=== PATIENT | female | born 1955 | race Caucasian/White ===

== ENCOUNTER → 2021-09-19 | Outpatient (CLI) | payer OTHER ==
[~2021-09-19] VITALS: Ht 167.6 cm; Wt 122.5 kg
[~2021-09-19] MED LIST: ALIGN4 MG PO; BENEFIBER1 G1 PO; BUPROPION HCL200 MG PO; CALTRATE-600 W1 EACH PO; CLONAZEPAM 0.50.5 M1 PO; COUMADIN 5 MG TA5 M1 PO; DETROL1 MG PO; GABAPENTIN100 MG PO; JANTOVEN6 MG PO; LEXAPRO 10 MG T10 M1 PO; LOSARTAN POTAS100 MG PO; MACROBID 100 M100 M1 PO; MULTIVITAMINS PO; NEURONTIN 400400 M1 PO; NEURONTIN600 MG PO; PREVACID15 MG PO; PROGESTERONE100 MG; SEROQUEL 25 MG25 M1 PO; VIIBRYD40 MG PO
--- NOTE | ~2021-09-19 | HPC ---
[facility] [place] [address] PAIN MANAGEMENT CONSULTATION Name: ODALYS CARREON Room #: REG [facility].#: [id number] Admission: 09/19/21 Attend Phys: Maximiliano Gabriel DO Discharge: Date of : 53 Report #: [id number] THIS REPORT FOR: cc: ISA MAYS Physician not on staff Maximiliano Gabriel DO ~ cc: JAVON Fournier DATE OF SERVICE: 09/19/2021 REFERRING PHYSICIAN: Abhilash Tucker, nurse practitioner. CHIEF COMPLAINT: Low back pain, right lower extremity pain with paresthesias. HISTORY OF PRESENT ILLNESS: As you know, the patient is a class III morbidly obese 66-year-old female with longstanding history of low back pain and right lower extremity pain with radiation of symptoms all the way from the buttock area to the foot. She indicates her pain began somewhere around 02/26/2021. She denies injury or trauma. She has undergone a reported epidural injection at [facility] with Dr. Sen, which according to the patient exacerbated her symptoms, leaving it near impossible to participate in physical therapy and daily activities. She has had a prior fusion with Dr. Reyna in 2008 with postsurgical changes from L3, L4 through L5. This apparently improved her symptoms for a time, but unfortunately as of February 2021, her back pain reoccurred with radiation down the right leg. She sought evaluation through Neurosurgery to discuss options for therapy. She was displaying some tenderness over the right sacroiliac joint, and the patient was referred to our clinic to discuss the possibility of undergoing a sacroiliac joint injection under fluoroscopic guidance to address her upper buttock symptoms. The patient reports today pain is located in the lower buttock area directly over the sciatic notch, radiating down the right leg. She describes the pain as more periodic, intermittent, momentary and transient in its presentation. She describes the pain as shooting, aching, pulling, sharp, stabbing, tender, numbness and tingling. Places current pain score 5/10. Daily average of 4-6/10. Worst the pain has been is 10+/10. The patient states her pain is exacerbated with trying to get into a car and bending over as well as ambulating and sleeping. Pain is improved with nothing to date. She has been referred to our service by her Neurosurgery team to discuss right sacroiliac joint injection. PAST MEDICAL HISTORY: GERD, hypertension, atrial fibrillation, interstitial cystitis, gastroparesis, anxiety disorder, sacroiliitis, chronic low back pain and morbid obesity. PAST SURGICAL HISTORY: 1. L3 through L5 fusion. [address] [address] PAIN MANAGEMENT CONSULTATION Name: ROCAELORIONODALYS ABHILASH Room #: REG [facility]#: [id number] Admission: 09/19/21 Attend Phys: Maximiliano Gabriel DO Discharge: Date of : 53 Report #: [id number] 2. PFO closure. 3. Bunionectomy x2. 4. Carpal tunnel syndrome. 5. Trigger finger release. SOCIAL HISTORY: The patient denies tobacco, alcohol or IV or illicit drug use. She is a retired teacher. She is not working, not receiving workmen's compensation nor is she trying to obtain disability benefits. She is not in litigation in regards to pain. She is unaccompanied today. REVIEW OF SYSTEMS: Positive for peptic ulcer disease, nocturia, chronic low back pain, right lower extremity pain with paresthesias, GERD, bleeding and bruising tendencies. All other review of systems negative per 12-point review of systems other than those listed in history of present illness. Pain impact score 46/70, severe interference of daily activities secondary to pain. ALLERGIES: BUSPIRONE, CYCLOBENZAPRINE, PENICILLIN, SULFA, ALOE VERA, KETOPROFEN, SULFAMETHOXAZOLE, TRIAMTERENE, ADHESIVE TAPE, BENZTROPINE, VANCOMYCIN, SEVOFLURANE AND LATEX. CURRENT MEDICATIONS: Viibryd 40 mg once a day, Seroquel 25 mg p.o. at bedtime, Align 4 mg once a day, losartan 100 mg per day, gabapentin 400 mg twice a day, calcium carbonate 1 tab per day, multivitamin 1 tab per day, Detrol 1 mg once a day, bupropion SR 200 mg 2 tabs p.o. q.a.m., Prevacid 15 mg per day, warfarin 5 mg per day. IMAGING: X-ray of the lumbar spine with flexion and extension, dated 04/19/2021 shows prior L3 through L5 posterior spinal fusion with lumbar laminectomies, left convexity curvature of the thoracolumbar spine with grade 1 anterolisthesis of L2 on L3, L3 on L4 and L4 on L5. Multilevel degenerative changes. MRI of the lumbar spine obtained 04/13/2021 shows postsurgical changes, levoconvex scoliosis, multilevel spondylosis and spondylolisthesis of lumbar spine. Postsurgical changes at L3-L4 and L4-L5 with fusion. There is decompression of the spinal canal at L3-L4. There is stenosis at the L4-L5 intervertebral space level. No high-grade neural foraminal narrowing. Grade 1 anterolisthesis of L3 on L4 and L4 on L5. L2-L3 spondylosis with spinal narrowing and compression of thecal sac with moderate foraminal narrowing. Mild central canal narrowing and moderate bilateral L5-S1 neural foraminal stenosis is noted. PQRS: The patient has known arthritic changes of the lumbar spine, bilateral hands, hips and knees. No rheumatoid arthritis. The patient's pain intensity is anywhere from 5-10/10. She is not a fall risk, has not had a fall in last 3 [facility] [address] [place] [address] PAIN MANAGEMENT CONSULTATION Name: ROCAELORIONODALYS Room #: REG [facility]#: [id number] Admission: 09/19/21 Attend Phys: Maximiliano Gabriel DO Discharge: Date of : 53 Report #: [id number] months. She is on blood thinners in the form of warfarin. She is treated for hypertension. She is on no opioids, has a low opioid addiction potential based on our assessment tool. Pain impact is 46/70, severe interference of daily activities secondary to pain. PHYSICAL EXAMINATION: VITAL SIGNS: Blood pressure 150/93, pulse 62, respiratory rate 20 and unlabored. The patient 100% on room air. Height 5 feet 6 inches tall, weight 270 pounds, BMI calculated 43.6. GENERAL: Well-developed, well-nourished, well-hydrated class III morbidly obese 66-year-old female, appearing stated age. She is in no acute distress. Awake, alert and oriented x3. Pain is rated today at 5-10/10. HEENT: Normocephalic, atraumatic. Pupils are round and responsive. She is wearing a mask in compliance with COVID-19 regulations and hospital policy. LUNGS: Appear clear. No wheezes, no rhonchi, no rales. CARDIOVASCULAR: Regular. No appreciable gallop, no rub. ABDOMEN: Soft, obese. EXTREMITIES: Show no clubbing, no cyanosis, no appreciable edema. MUSCULOSKELETAL: Lower extremity strength equal and symmetrical, 5/5. Seated straight leg raising negative. Supine straight leg raising positive on the right. Douglas's test is negative. Thigh thrust maneuver is mildly positive over the right, negative left. Trent's test is positive on the right, negative left. Palpatory tenderness is noted over the right sacroiliac joint, negative left. Deep palpation over the sciatic notch causes the patient's typical pain with radiation along the lateral aspect of the leg with radiation all the way down to the medial ankle. Gait is antalgic, favoring right lower extremity over left. Muscle bulk and tone appears symmetrical. Downgoing Babinski's. Deep tendon reflexes were symmetrical, but diminished at the patella and Achilles. ASSESSMENT: 1. Right sacroiliac joint pain. 2. Lumbar radiculopathy. 3. Central canal stenosis of lumbar spine. 4. Neural foraminal stenosis of lumbar spine. 5. Failed lumbar spine surgery. 6. Chronic intractable pain. PLAN: 1. The patient has been referred to our service by her Neurosurgery team to discuss the possibility of undergoing a right sacroiliac joint injection as it is considered 1 of the major pain generator this patient is currently experiencing. She does have palpatory tenderness over the right sacroiliac joint and had provocation testing consistent with SI joint pain, but she is not experiencing any distribution of symptoms consistent with an SI joint dysfunction. Her symptoms start in the mid buttock area unrelated to the SI joint, radiating down the right leg. It would appear that she is suffering from [facility] [address] [place] [address] PAIN MANAGEMENT CONSULTATION Name: VETETO,ODALYS ABHILASH [id number] Admission: 09/19/21 Attend Phys: Maximiliano Gabriel DO Discharge: Date of : 53 Report #: [id number] a possible lumbar radiculopathy in conjunction with right sacroiliac joint pain. We have discussed with the patient over an extended period of time today the treatment options we have. The patient is quite confused in regards to the reason for her referral to our clinic. She states that she was doing well in physical therapy and that previous injections have exacerbated her symptoms. She is not sure she wants to look towards interventional treatments, though after a very long discussion today was taking over 45 minutes of time, we then gave the patient the options we have to treat her symptoms at present. The following was discussed with the patient today. We discussed continuation of physical therapy, stretching exercises and core strengthening as well as concerted effort at weight loss as a treatment approach. We discussed suggestions and medication management to be provided to the prescribing physician. We also discussed the interventional treatment requested of us the right sacroiliac joint injection. We also discussed ultimately surgical options including fusion of the SI joint and further addressing her lumbar radicular symptoms. After reviewing the risks and benefits of all proposed treatment options, the patient chose to continue with physical therapy. 2. The patient will continue her physical therapy. She has seen some benefit with this option of treatment. She will continue to participate in the physical therapy program on a formalized fashion until which time she runs low of coverage from her insurer. She will then take all of the information she has gained over the time with physical therapy and do those exercises at home. We made no adjustments in her physical therapy techniques at this point. 3. We will make ourselves available to the patient if she wishes to return to undergo right sacroiliac joint injection. We have advised the patient that if she is not seeing the improvement after 2 weeks more of physical therapy, she can return to undergo the SI joint injection proposed. This will improve her upper buttocks symptoms that she is experiencing, but will likely have little benefit involving the right lower extremity symptoms radiating to the medial ankle. We will make ourselves available to the patient if she wishes to return to undergo the injection. 4. No medication changes made at today's visit. The patient will continue current medical therapy as prior prescribed. 5. We will see the patient back in followup visit as indicated above. We will keep you apprised if she does return to undergo those injections. 6. We wish to thank nurse practitioner, Anel Tucker for the opportunity to see the patient in consultation. We will keep you apprised of her response to treatment if she does return to undergo injections with our services. Again, we wish to thank you for the opportunity to see the patient in consultation. By: [id number] Maximiliano Gabrile DO /nt
[2021-09-19 13:03] VITALS: BP 150/93
--- NOTE | 2021-09-19 14:13 | NUR ---
Pain Clinic Assessment: 1. History of Osteoarthritis: SPINE HANDS History of Rheumatoid Arthritis: DENIES 2. Height: 5 ft. 6 in. 167.6 cm. Weight: 270.0 lb. oz. 122.472 kg. Patient's BMI: 43.6 3. Vital Signs: BP: 150/93 Pulse: 62 Resp: 20 Temp: 02 Sat: 100 ECG Mon: 4. Pain Intensity: 5 TO 10 5. Fall Risk: Dizziness: N Needs help standing or walking: N Fallen in the last 3 months: N Fall risk comments: 6. Patient on Blood Thinner: Y 7. History of Hypertension: Y 8. Opioid Therapy greater than 6 weeks: N Opiate Contract Signed: 9. Risk Assessment Tool Provided: LOW-1 10. Functional Assessment Tool: 11. Recreational Drug Use: Never Drug Type: Tobacco Use: Never Smoker Tobacco Type: Amount or Packs/day: How Many Years: Alcohol Use: No Frequency: Quant:
== END ==
LOC: PAIN 10:40
PROVIDERS: ATTEND Anesthesiology Pain Medicine
DX: M54.16 Radiculopathy, lumbar region (principal); M48.061 Spinal stenosis, lumbar region without neurogenic claudication; M53.3 Sacrococcygeal disorders, not elsewhere classified; M96.1 Postlaminectomy syndrome, not elsewhere classified; G89.29 Other chronic pain; I10 Essential (primary) hypertension; K21.9 Gastro-esophageal reflux disease without esophagitis; I48.91 Unspecified atrial fibrillation; M79.661 Pain in right lower leg; Z88.0 Allergy status to penicillin; Z88.8 Allergy status to other drugs, medicaments and biological substances

== ENCOUNTER → 2021-10-04 | Outpatient (CLI) | payer OTHER ==
[~2021-10-04] VITALS: Ht 167.6 cm; Wt 125.3 kg
--- NOTE | ~2021-10-04 | HPC ---
[facility] [place] [address] PAIN MANAGEMENT CONSULTATION Name: ODALYS CARREON Room #: REG [facility].#: [id number] Admission: 10/04/21 Attend Phys: Maximiliano Gabriel DO Discharge: Date of : 53 Report #: [id number] THIS REPORT FOR: cc: Darlin Tucker BUSINESS LEADER Physician not on staff Maximiliano Gabriel DO ~ cc: JAVON Fournier DATE OF SERVICE: 10/04/2021 CHIEF COMPLAINT: Low back, right lower extremity pain with paresthesias. HISTORY OF PRESENT ILLNESS: As you know, the patient is a class 3, morbidly obese 66-year-old female with longstanding history of low back pain, right lower extremity pain with radiation of symptoms all the way from the buttock to the foot. She was referred to our clinic by neurosurgery to be evaluated for right sacroiliac joint injection. I saw the patient on 09/19/2021 where we spent over 2 hours of time reviewing the patient's case and describing the treatment options for right sacroiliac joint pain. The patient at the time decided she did not wish to undergo treatment. She wanted to follow up with Neurosurgery. She returns today in followup visit reporting a pain score of 10/10. She is able to localize pain to the right buttock area and describes pain that radiates all the way down the leg to her foot. She returns to discuss SI joint injection again and to determine the logistics that have to be completed before she can undergo that procedure including the discontinuation of her Coumadin. She places pain today at 10/10. There has been no new inciting injury or trauma. She describes the pain as intermittent, stabbing, tenderness and sharp, exacerbated with sitting in a car and bending over. ALLERGIES: See the extensive list in chart. CURRENT MEDICATIONS: Viibryd, Seroquel, Align, losartan, gabapentin, calcium carbonate, multivitamin, Detrol, bupropion, lansoprazole and warfarin. SOCIAL HISTORY: The patient denies tobacco, alcohol, IV or illicit drug use. 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 IMAGING: No new imaging available. PQRS: The patient has known arthritic changes of lumbar spine, bilateral hips, hands and knees. No rheumatoid arthritis. She is placing pain intensity today at 10/10. She is not a fall risk, has not had a fall in last 3 months. She is on blood thinners and continues on warfarin today. She is treated for hypertension. She is not on opioids, has a low opioid addiction potential based on assessment tool. Pain impact is 46 of 70, severe interference of daily activities secondary to pain. [address] [address] PAIN MANAGEMENT CONSULTATION Name: ODALYS CARREON Room #: REG [facility]#: [id number] Admission: 10/04/21 Attend Phys: Maximiliano Gabriel DO Discharge: Date of : 53 Report #: [id number] PHYSICAL EXAMINATION: VITAL SIGNS: Blood pressure 144/82, pulse of 55, respiratory rate 18 and unlabored. The patient 98% on room air. Height 5 feet 6 inches tall, weight 276.2 pounds, BMI calculated 44.6. GENERAL: Well-developed, well-nourished, well-hydrated class III, morbidly obese 66-year-old female appearing stated age, pain is rated today 10/10. HEENT: Normocephalic, atraumatic. Pupils equal, round and responsive. She is wearing a mask in compliance with COVID-19 regulations. EXTREMITIES: Show no clubbing, no cyanosis. No appreciable edema. MUSCULOSKELETAL: Lower extremity strength is symmetrical again today 5/5. Seated straight leg raising negative. Supine straight leg raising positive on the right. Fabere's test is negative. Thigh thrust maneuver mildly positive on the right, negative left. Trent's test is positive on the right, negative on the left. Deep palpation of the sciatic notch causes intensification of pain. ASSESSMENT: 1. Right sacroiliac joint pain. 2. Right sacroiliac joint dysfunction. 3. Lumbar radiculopathy. 4. Central canal stenosis of lumbar spine. 5. 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 7. Chronic intractable pain. PLAN: 1. The patient returns today in followup visit to discuss further the possibility of undergoing an SI joint injection on the right side. The patient has considered her options and does wish to move forward today with SI joint injection. She has not stopped her Coumadin in preparation for today's procedure. She will have to discontinue the medication for at least 3 days before she can safely undergo the procedure. The patient is agreeable with undergoing the procedure next Saturday. She will discontinue her Coumadin starting Saturday10/07/2021 and continue off the medication until our visit on Saturday. She will undergo the SI joint injection. We will restart the Coumadin that afternoon. The patient is agreeable with the plan. 2. No medication changes made at today's visit. The patient will continue current medical therapy as prior prescribed. 3. We will see the patient back in followup visit on Saturday of next week for a right sacroiliac joint injection under fluoroscopic guidance to address right sacroiliac joint pain and dysfunction. By: [id number] Maximiliano Gabriel DO /nt
[2021-10-04 09:27] VITALS: BP 144/82
--- NOTE | 2021-10-04 09:37 | NUR ---
Pain Clinic Assessment: 1. History of Osteoarthritis: SPINE HANDS History of Rheumatoid Arthritis: DENIES 2. Height: 5 ft. 6 in. 167.6 cm. Weight: 276.2 lb. oz. 125.284 kg. Patient's BMI: 44.6 3. Vital Signs: BP: 144/82 Pulse: 55 Resp: 18 Temp: 02 Sat: 98 ECG Mon: 4. Pain Intensity: 10 5. Fall Risk: Dizziness: N Needs help standing or walking: N Fallen in the last 3 months: N Fall risk comments: 6. Patient on Blood Thinner: Y 7. History of Hypertension: Y 8. Opioid Therapy greater than 6 weeks: N Opiate Contract Signed: 9. Risk Assessment Tool Provided: LOW-1 10. Functional Assessment Tool: 11. Recreational Drug Use: Never Drug Type: Tobacco Use: Never Smoker Tobacco Type: Amount or Packs/day: How Many Years: Alcohol Use: No Frequency: Quant:
== END ==
LOC: PAIN 06:56
PROVIDERS: ATTEND Anesthesiology Pain Medicine
DX: M54.16 Radiculopathy, lumbar region (principal); M48.061 Spinal stenosis, lumbar region without neurogenic claudication; M96.1 Postlaminectomy syndrome, not elsewhere classified; G89.29 Other chronic pain; M53.3 Sacrococcygeal disorders, not elsewhere classified; M79.661 Pain in right lower leg; Z88.8 Allergy status to other drugs, medicaments and biological substances; Z79.899 Other long term (current) drug therapy; Z79.01 Long term (current) use of anticoagulants

== ENCOUNTER → 2021-10-10 | Outpatient (CLI) | payer OTHER ==
[~2021-10-10] VITALS: Ht 167.6 cm; Wt 123.4 kg
--- NOTE | ~2021-10-10 | HPC ---
[address] [address] PAIN MANAGEMENT CONSULTATION Name: ODALYS CARREON Room #: REG [facility]..#: [id number] Admission: 10/10/21 Attend Phys: Maximiliano Gabriel DO Discharge: Date of : 53 Report #: [id number] THIS REPORT FOR: cc: Darlin Tucker HYDROCRANE OPERATOR Physician not on staff Maximiliano Gabriel DO ~ cc: JAVON Fournier DATE OF SERVICE: 10/10/2021 CHIEF COMPLAINT: Low back pain, right buttock and posterolateral thigh pain. HISTORY OF PRESENT ILLNESS: As you know, the patient is a class 3 morbidly obese 66-year-old female with longstanding history of low back pain, right lower extremity pain with radiation of symptoms from the buttock area to the foot. She was referred to our service by Neurosurgery to undergo SI joint injection under fluoroscopic guidance. She was last seen in our clinic on 10/04/2021 where she agreed to undergo the procedure as her symptoms did not resolve with conservative treatment. She established today's appointment to undergo that procedure per her request. She returns today in followup visit with pain score of 7/10 to undergo right sacroiliac joint injection under fluoroscopic guidance. The patient denies injury or trauma that may have led to symptom development. There has been no changes in her medication management since our last visit that would preclude her from undergoing the injection today. ALLERGIES: See the extensive list in chart. CURRENT MEDICATIONS: See chart. SOCIAL HISTORY: The patient denies tobacco, alcohol or IV or illicit drug use. She is a retired teacher. She is unaccompanied today. IMAGING: No new imaging available. PQRS: The patient has known arthritic changes of the lumbar spine, bilateral hips and knees. No rheumatoid arthritis. She is placing pain intensity today 7/10. She is not a fall risk, has not had a fall in last 3 months. She is on a blood thinner in the form of warfarin, but discontinued the medication 3 days ago. She is treated for hypertension, but is not on any chronic opioids, has a low opioid addiction potential based on assessment tool. Pain impact is 46/70, severe interference of daily activities secondary to pain. PHYSICAL EXAMINATION: VITAL SIGNS: Blood pressure 149/79, pulse 55, respiratory rate 16 and unlabored. The patient is 98% on room air. Height 5 feet 6 inches tall, weight 272 pounds, BMI calculated 43.9. GENERAL: Well-developed, well-nourished, well-hydrated class 3 [place] [address] PAIN MANAGEMENT CONSULTATION Name: ODALYS CARREON Room #: REG [facility].#: [id number] Admission: 10/10/21 Attend Phys: Maximiliano Gabriel DO Discharge: Date of : 53 Report #: [id number] 66-year-old female appearing stated age, pain is rated today 7/10. HEENT: Normocephalic, atraumatic. Pupils are round. She is wearing a mask in compliance with COVID-19 regulations and hospital policy. EXTREMITIES: Show no clubbing, no cyanosis, no edema. MUSCULOSKELETAL: Lower extremity strength remains symmetrical again today 5/5. Muscle bulk, tone equal and symmetrical. Seated straight leg raising negative. Supine straight leg raising is positive on the right. ANNA's test is mildly positive over SI joint. Thigh thrust maneuver mildly positive over the right and negative left. Trent's test is positive on the right, negative on the left. ASSESSMENT: 1. Right sacroiliac joint pain. 2. Right sacroiliac joint dysfunction. 3. Chronic lumbar radiculopathy. 4. Central canal stenosis of lumbar spine. 5. 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 7. Chronic intractable pain. PLAN: 1. The patient returns today in followup visit, prepared to undergo right sacroiliac joint injection under fluoroscopic guidance. The patient and I discussed today the risks and the benefits of this procedure. These risks include but are not necessarily limited to bleeding, bruising, infection, worsening pain, no relief of pain, also risk of temporary or permanent muscle weakness, temporary or permanent nerve damage, possible paralysis, post-dural puncture headache and . The patient states she understood and wished to proceed. 2. No medication changes made at today's visit. The patient will continue current medical therapy as prior prescribed. 3. Plan to see the patient back in followup visit for the next in the series of SI joint injections in 30 days. The patient will contact our clinic with the efficacy of the injection. She will restart her warfarin today and continue the medication as directed. She will be following up with Neurosurgery in regards to surgical options if the injection provides only transient improvement. PROCEDURE NOTE DESCRIPTION OF PROCEDURE: Right sacroiliac joint injection under fluoroscopic guidance. This is the first procedure of the first series that the patient is undergoing. After obtaining written consent, the patient was taken back to the fluoroscopy suite and placed in a prone position with a pillow under the pelvis to decrease [address] [address] PAIN MANAGEMENT CONSULTATION Name: ODALYS CARREON [id number] Admission: 10/10/21 Attend Phys: Maximiliano Gabriel DO Discharge: Date of : 53 Report #: [id number] the lumbar lordosis. The skin of the gluteal-sacral area overlying the right sacroiliac joint was prepped and draped in an aseptic fashion. A medial to lateral oblique projection allowed separation of the anterior and posterior branches of the joint space. The skin and subcutaneous tissue overlying the target site of injection was anesthetized using 3 mL of 1% lidocaine. A 20-gauge 6-inch Chiba needle with a bent tip was directed into the inferior aspect of the sacroiliac joint using a posterior approach. A ____ giving way ____ at the needle hub was noted once the dorsal sacroiliac and interosseous ligaments were engaged. After negative aspiration for heme, a total of 0.4 mL of Omnipaque was injected, outlining the coin-shaped inferior recess of the joint. Provocation responses consisting of intense buttock pain were negative. After negative aspiration for heme, 3 mL of solution contatining 1 mL of 40 mg per mL, 40 mg total triamcinolone and 2 mL 2 mL of bupivacaine 0.5% was slowly injected. The needle was then retracted approximately senior living and the needle track was flushed with 1 mL of lidocaine 1%. Needle was then removed. A sterile bandage was placed over the injection site. There were no new sensory deficits present in the lower extremities. The heart rate, pulse oximetry and blood pressure were continuously monitored after the procedure. There were no apparent complications. The patient tolerated the procedure well and was carefully escorted to the recovery room in stable condition. The VAS was 7/10 before the procedure and 7/10 ten minutes after the procedure. After meeting discharge criteria, the patient was discharged home. By: [id number] Maximiliano Gabriel DO /nt
[2021-10-10 13:04] VITALS: BP 149/79
--- NOTE | 2021-10-10 13:16 | NUR ---
Pain Clinic Assessment: 1. History of Osteoarthritis: SPINE HANDS History of Rheumatoid Arthritis: DENIES 2. Height: 5 ft. 6 in. 167.6 cm. Weight: 272.0 lb. oz. 123.379 kg. Patient's BMI: 43.9 3. Vital Signs: BP: 149/79 Pulse: 55 Resp: 16 Temp: 02 Sat: 98 ECG Mon: 4. Pain Intensity: 7 5. Fall Risk: Dizziness: N Needs help standing or walking: N Fallen in the last 3 months: N Fall risk comments: 6. Patient on Blood Thinner: warfarin 7. History of Hypertension: Y 8. Opioid Therapy greater than 6 weeks: N Opiate Contract Signed: 9. Risk Assessment Tool Provided: LOW-1 10. Functional Assessment Tool: 11. Recreational Drug Use: Never Drug Type: Tobacco Use: Never Smoker Tobacco Type: Amount or Packs/day: How Many Years: Alcohol Use: No Frequency: Quant:
== END | disposition home or self-care (01) ==
LOC: PAIN 07:00
PROVIDERS: ATTEND Anesthesiology Pain Medicine
DX: M53.3 Sacrococcygeal disorders, not elsewhere classified (principal); G89.29 Other chronic pain; M54.16 Radiculopathy, lumbar region; M48.061 Spinal stenosis, lumbar region without neurogenic claudication; M96.1 Postlaminectomy syndrome, not elsewhere classified; I10 Essential (primary) hypertension; M19.90 Unspecified osteoarthritis, unspecified site; Z98.890 Other specified postprocedural states; Z79.899 Other long term (current) drug therapy; Z88.8 Allergy status to other drugs, medicaments and biological substances

== ENCOUNTER → 2021-11-14 | Outpatient (CLI) | payer OTHER ==
[~2021-11-14] VITALS: Ht 167.6 cm; Wt 123.8 kg
--- NOTE | ~2021-11-14 | HPC ---
[facility] [address] [address] PAIN MANAGEMENT CONSULTATION Name: ODALYS CARREON Room #: REG [facility]..#: [id number] Admission: 11/14/21 Attend Phys: Maximiliano Gabriel DO Discharge: Date of : 53 Report #: [id number] THIS REPORT FOR: cc: Darlin Tucker,Maximiliano Croft DO ~ cc: JAVON Fournier DATE OF SERVICE: 11/14/2021 REFERRING PHYSICIAN: Darlin Tucker NP CHIEF COMPLAINT: Sacroiliac joint pain. HISTORY OF PRESENT ILLNESS: As you know, the patient is a pleasant 66-year-old class 3, morbidly obese female with longstanding history of low back pain, right buttock and posterolateral thigh pain. She was referred to our clinic to trial SI joint injections under fluoroscopic guidance. She underwent the first in the series of SI joint injections on 10/10/2021 with reported improvement in symptoms of 75%. She continues to experience "flares." She notices mainly flares when trying to get in and out of a car or moving around in bed. She returns today in followup visit to discuss more definitive treatment options to address this issue. She is very pleased with response to the SI joint injection, but wants to know if there is a more permanent approach for treatment. Overall, the patient states she is doing better, 75% improvement. ALLERGIES: BUSPIRONE, CYCLOBENZAPRINE, PENICILLIN, SULFA, ALOE VERA, KETOPROFEN, SULFAMETHOXAZOLE, TRIAMTERENE, BENZTROPINE, VANCOMYCIN, SEVOFLURANE, LATEX. CURRENT MEDICATIONS: Viibryd 40 mg once a day, quetiapine 25 mg once a day, Align 4 mg once a day, losartan 100 mg once a day, gabapentin 400 mg twice a day, calcium carbonate 1 tab per day, multivitamin 1 tab per day, Detrol 1 mg once a day, bupropion SR 200 mg once a day, lansoprazole 15 mg once a day, warfarin 5 mg once a day. SOCIAL HISTORY: The patient denies tobacco, alcohol or IV or illicit drug use. 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 IMAGING: No new imaging available. PQRS: The patient has known arthritic changes of lumbar spine, bilateral hips and knees. No rheumatoid arthritis. The patient's pain intensity today is 3/10. She is not a fall risk, has not had a fall in last 3 months. She is on blood thinners in the form of warfarin and continues the medication to date. She is treated for hypertension. She is not on any opioids, has a low opioid addiction potential based on assessment tool. Pain impact is 46/70. [address] [address] PAIN MANAGEMENT CONSULTATION Name: ODALYS CARREON [id number] Admission: 11/14/21 Attend Phys: Maximiliano Gabriel DO Discharge: Date of : 53 Report #: [id number] PHYSICAL EXAMINATION: VITAL SIGNS: Blood pressure 132/77, pulse 63, respiratory rate 16 and unlabored. The patient is 98% on room air. Height 5 feet 6 inches tall, weight 273 pounds, BMI calculated 44.1. GENERAL: Well-developed, well-nourished, well-hydrated class III, morbidly obese 66-year-old female appearing stated age. Pain is rated today 3/10. HEENT: Normocephalic, atraumatic. Pupils are round. She is wearing a mask in compliance with COVID-19 regulations. EXTREMITIES: Show no clubbing, no cyanosis, no edema. MUSCULOSKELETAL: Lower extremity strength is symmetrical again today 5/5. Slight giveaway strength noted with hip flexion on the right when compared to left. Pain is elicited with Fabere's test, thigh thrust maneuver, Trent's test on the right; negative left. Seated straight leg raising negative. Supine straight leg raising is negative. There is palpatory tenderness over the right sacroiliac joint when compared to left. ASSESSMENT: 1. Right sacroiliac joint pain. 2. Right sacroiliac joint dysfunction. 3. Chronic lumbar radiculopathy. 4. Central canal stenosis of lumbar spine. 5. 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 7. Chronic intractable pain. PLAN: 1. The patient returns today in followup visit having undergone a right sacroiliac joint injection under fluoroscopic guidance at 10/10 appointment. She has been doing very well, 75% improvement in overall pain. Unfortunately, the patient continues to experience "flares." These were noted mainly when the patient is trying to get into and get out of a car or getting out of bed or sitting for any length of time. This is consistent with her SI joint pain. She wishes to discuss more definitive treatment options for this issue. We discussed with the patient that radiofrequency lesioning of the lateral branch nerves addressing the SI joint have been done in the past, but they are now classified as experimental and are not covered by third green party payer. She could certainly look towards paying rasmussen segura to undergo that procedure. We also discussed with the patient fusion of the SI joint and she is interested in this option. She has not discounted undergoing the next in the series of SI joint injection, but wants to look into her options before making a final decision. The patient was given the names of surgeons that perform SI joint fusions today. She will follow up with Neurosurgery if she chooses to undergo the instrumented fusion. 2. No medication changes made at today's visit. The patient will continue on current medical therapy as prior prescribed. [address] [address] PAIN MANAGEMENT CONSULTATION Name: ROCAELORIONODALYS Room #: REG CLI [facility].#: [id number] Admission: 11/14/21 Attend Phys: Maximiliano Gabriel DO Discharge: Date of : 53 Report #: [id number] 3. We will see the patient back in followup visit on an as needed basis for possible next in the series of right SI joint injections. She will keep us apprised whether or not she moves forward with a fusion of the SI joint. By: [id number] Maximiliano Gabriel DO /nt
[2021-11-14 12:49] VITALS: BP 132/77
--- NOTE | 2021-11-14 13:03 | NUR ---
Pain Clinic Assessment: 1. History of Osteoarthritis: SPINE HANDS History of Rheumatoid Arthritis: DENIES 2. Height: 5 ft. 6 in. 167.6 cm. Weight: 273.0 lb. oz. 123.832 kg. Patient's BMI: 44.1 3. Vital Signs: BP: 132/77 Pulse: 63 Resp: 16 Temp: 02 Sat: 98 ECG Mon: 4. Pain Intensity: 3 TO 4 5. Fall Risk: Dizziness: N Needs help standing or walking: N Fallen in the last 3 months: N Fall risk comments: 6. Patient on Blood Thinner: warfarin 7. History of Hypertension: Y 8. Opioid Therapy greater than 6 weeks: N Opiate Contract Signed: 9. Risk Assessment Tool Provided: LOW-1 10. Functional Assessment Tool: 11. Recreational Drug Use: Never Drug Type: Tobacco Use: Never Smoker Tobacco Type: Amount or Packs/day: How Many Years: Alcohol Use: No Frequency: Quant:
== END ==
LOC: PAIN 08:57
PROVIDERS: ATTEND Anesthesiology Pain Medicine
DX: M54.16 Radiculopathy, lumbar region (principal); M48.061 Spinal stenosis, lumbar region without neurogenic claudication; M96.1 Postlaminectomy syndrome, not elsewhere classified; M53.3 Sacrococcygeal disorders, not elsewhere classified; G89.29 Other chronic pain; Z88.0 Allergy status to penicillin; Z88.8 Allergy status to other drugs, medicaments and biological substances; Z79.899 Other long term (current) drug therapy; Z79.01 Long term (current) use of anticoagulants